=== PATIENT | male | born 1960 | race Caucasian/White ===

== ENCOUNTER 2020-12-21 22:32 | Emergency (ER) | payer OTHER ==
[~2020-12-21] VITALS: Ht 180.3 cm; Wt 83.9 kg
[~2020-12-21 22:32] MED LIST: BP MED; CHOLESTEROL MED; LEVO25TA9 PO
[2020-12-21] MEDS ORDERED: ONDANSETRON HCL/PF 4 MG/2 ML VIAL IVP ONE (23:00)
[2020-12-21] MEDS ORDERED: MORPHINE SULFATE INJ 2 MG/ML DISP.SYRIN IV ONE (23:00)
[2020-12-21] MEDS ORDERED: MORPHINE SULFATE INJ 4 MG/ML DISP.SYRIN ONE (23:05)
[2020-12-21] MEDS ORDERED: ONDANSETRON HCL/PF 4 MG/2 ML VIAL ONE (23:05)
[2020-12-21 23:18] LABS: HEMOGLOBIN 14.1 g/dL (13.5-17.5); WHITE BLOOD COUNT (AUTO) 8.2 K/uL (4.3-11.0)
[2020-12-21 23:23] LABS: BASOPHILS # (AUTO) 0.1 K/uL (0.0-0.2); BASOPHILS % (AUTO) 0.7 % (0.0-2.0); HEMATOCRIT 42 % (39-51); LYMPHOCYTES # (AUTO) 2.5 K/uL (0.8-4.8); LYMPHOCYTES % (AUTO) 29.9 % (20.0-44.0); MEAN CORPUSCULAR HGB CONC 34 g/dl (31.0-36.0); MEAN CORPUSCULAR VOLUME 92 fL (80-96); MONOCYTES # (AUTO) 0.8 K/uL (0.1-1.30); NEUTROPHILS # (AUTO) 4.4 K/uL (1.8-8.9); NEUTROPHILS % (AUTO) 53.4 % (43.0-81.0); PLATELET COUNT (AUTO) 216 K/uL (150-450); RED BLOOD CELL COUNT(AUTO) 4.53 MIL/uL (4.5-6.0)
[2020-12-21 23:28] LABS: BILIRUBIN,URINE Negative (NEGATIVE); COLOR,URINE YELLOW (YELLOW); LEUKOCYTE ESTERASE ,URINE Negative (NEGATIVE); NITRITE, URINE Negative (NEGATIVE); PROTEIN,URINE Negative (NEGATIVE); UGLUCOSE Negative (NEGATIVE); UROBILINOGEN,URINE 0.2 EU/dL (0.2)
[2020-12-21 23:51] LABS: ALBUMIN 3.9 g/dL (3.4-5.0); BILIRUBIN,DIRECT 0.1 mg/dL (0.0-0.2); BILIRUBIN,TOTAL 0.4 mg/dL (0.2-1.0); CALCIUM, SERUM 8.3 mg/dL (8.5-10.1); CREATININE 1.1 mg/dL (0.6-1.3); POTASSIUM 4.3 mmol/L (3.5-5.1); TOTAL PROTEIN, SERUM 7.4 g/dL (6.4-8.2)
[2020-12-22] MEDS ORDERED: PIPERACILLIN /TAZOBACTAM 3.375 G in IV D5W 50 ML IV ONE
[2020-12-22] MEDS ORDERED: IV NS 0.9% 1,000 ML BAG IV ONE
[2020-12-22] MEDS ORDERED: HYDROMORPHONE INJ 2 MG/ML DISP.SYRIN IV ONE
[2020-12-22] MEDS ORDERED: PIPERACILLIN /TAZOBACTAM 3.375 G VIAL IV ONE (00:20)
[2020-12-22] MEDS ORDERED: HYDROMORPHONE 1 MG/1 ML DISP.SYRIN ONE (00:20)
--- NOTE | 2020-12-22 00:31 | NUR ---
[facility] CALLED FOR HIGHER LEVEL OF CARE. NO BEDS AVAILABLE.
--- NOTE | 2020-12-22 00:35 | NUR ---
[facility] CALLED FOR HIGHER LEVEL OF CARE. [facility] FAXED.
--- NOTE | 2020-12-22 00:53 | NUR ---
ANUPAM CARPENTER [facility] TRANSFER CALLED FOR [employer] TRANSFER REQUEST. MESSAGE LEFT. [facility] FAXED.
--- NOTE | 2020-12-22 01:02 | NUR ---
[facility] CALLED FOR HIGHER LEVEL OF CARE.
--- NOTE | 2020-12-22 01:45 | NUR ---
SPOKE WITH [facility]. NO [facility] BEDS.
[2020-12-22] MEDS ORDERED: CETI10TA14 PO (07:16)
[2020-12-22] MEDS ORDERED: BENA20TA9 PO (07:16)
[2020-12-22] MEDS ORDERED: FLUT16SP16 (07:16)
[2020-12-22] MEDS ORDERED: ATOR40TA PO (07:16)
--- NOTE | 2020-12-22 09:46 | NUR ---
[facility] CALLED DANIELLE WILL CALL US BACK WITH MD FOR TRANSFER.
--- NOTE | 2020-12-22 09:50 | NUR ---
[facility]NAG[facility] CALLED FOR ASSISTANCE IN HIGHER LEVEL OF CARE TRANSFER
--- NOTE | 2020-12-22 11:50 | NUR ---
DR. GRAHAM SPEAKING WITH DR. SCHWARTZ
[2020-12-22] MEDS ORDERED: MORPHINE SULFATE INJ 2 MG/ML DISP.SYRIN IV ONE (12:00)
[2020-12-22] MEDS ORDERED: MORPHINE SULFATE INJ 2 MG/ML DISP.SYRIN ONE (12:15)
--- NOTE | 2020-12-22 13:59 | NUR ---
Patient Tranfers to outside Facility Physician: Location: [facility] number for report [phone] room [id number]
--- NOTE | 2020-12-22 14:04 | NUR ---
[facility] WILL TRANSPORT PT IN 45 MINS. [phone]
[2020-12-22 14:06] VITALS: BP 150/81
--- NOTE | 2020-12-22 14:37 | NUR ---
patient picked by private ambulance going to [facility] in no distress.
== END 2020-12-22 14:37 | disposition short-term general hospital (02) ==
LOC: ER 22:35
DX: K80.51 Calculus of bile duct without cholangitis or cholecystitis with obstruction (principal); Z20.822 Contact with and (suspected) exposure to COVID-19; I10 Essential (primary) hypertension; E03.9 Hypothyroidism, unspecified; E78.5 Hyperlipidemia, unspecified; Z79.890 Hormone replacement therapy; Z79.899 Other long term (current) drug therapy; K57.30 Diverticulosis of large intestine without perforation or abscess without bleeding; Z90.49 Acquired absence of other specified parts of digestive tract
CPT/HCPCS: 36415; 74176; 80048; 80076; 81003; 83690; 85025; 87426; 93005; 96365; 96375 ×2; 96376; 99285; C9803; J1170; J2270 ×2; J2405; J2543; J7030; J7060

== ENCOUNTER 2022-11-08 12:57 | Emergency (ER) | payer OTHER ==
[~2022-11-08] VITALS: Ht 180.3 cm; Wt 104.8 kg
[~2022-11-08 12:57] MED LIST changes: +ATOR40TA PO; +BENA20TA9 PO; -BP MED; +CETI10TA14 PO; -CHOLESTEROL MED; +FLUT16SP16
[2022-11-08] MEDS ORDERED: IV NS 0.9% 1,000 ML BAG IV ONE (13:30)
[2022-11-08 14:02] LABS: BASOPHILS # (AUTO) 0.1 K/uL (0.0-0.2); BASOPHILS % (AUTO) 1.2 % (0.0-2.0); EOSINOPHILS # (AUTO) 0.2 K/uL (0.0-0.7); EOSINOPHILS % (AUTO) 2.2 % (0.0-6.0); HEMATOCRIT 45 % (39-51); HEMOGLOBIN 15.2 g/dL (13.5-17.5); LYMPHOCYTES # (AUTO) 2.3 K/uL (0.8-4.8); LYMPHOCYTES % (AUTO) 24.6 % (20.0-44.0); MEAN CORPUSCULAR HEMOGLOBIN 31 PG (26.0-33.0); MEAN CORPUSCULAR HGB CONC 34 g/dl (31.0-36.0); MEAN CORPUSCULAR VOLUME 91 fL (80-96); MONOCYTES # (AUTO) 0.7 K/uL (0.1-1.30); MONOCYTES % (AUTO) 7.2 % (2.0-12.0); NEUTROPHILS % (AUTO) 64.8 % (43.0-81.0); PLATELET COUNT (AUTO) 264 K/uL (150-450); RED BLOOD CELL COUNT(AUTO) 4.95 MIL/uL (4.5-6.0); RED CELL DISTRIBUTION WIDTH 13.2 % (11.5-15.0); WHITE BLOOD COUNT (AUTO) 9.2 K/uL (4.3-11.0)
[2022-11-08 14:07] LABS: CALCIUM, SERUM 9.1 mg/dL (8.5-10.1); CARBON DIOXIDE 24 mmol/L (21-32); CHLORIDE 106 mmol/L (98-107); GLUCOSE 124 mg/dL (74-106); POTASSIUM 3.8 mmol/L (3.5-5.1); SODIUM SERUM 140 mmol/L (136-145); UREA NITROGEN, BLOOD 18 mg/dL (7-18)
[2022-11-08 14:12] LABS: INR 0.99 (0.91-1.10); PARTIAL THROMBOPLASTIN TIME 26.7 SEC (24.3-34.3); PROTHROMBIN TIME 10.4 SECS (9.2-11.1)
[2022-11-08 14:13] LABS: ALANINE AMINOTRANSFERASE 65 U/L (12-78); ALBUMIN 4.1 g/dL (3.4-5.0); ALKALINE PHOSPHATASE 129 U/L (46-116); ASPARTATE AMINOTRANSFERASE 56 U/L (15-37); BILIRUBIN,DIRECT 0.1 mg/dL (0.0-0.2); BILIRUBIN,TOTAL 0.5 mg/dL (0.2-1.0); TOTAL PROTEIN, SERUM 8.1 g/dL (6.4-8.2)
[2022-11-08 15:30] VITALS: BP 127/88; TEMP 98.3; O2SAT 99
== END 2022-11-08 15:30 | disposition home or self-care (01) ==
LOC: ER 12:59
DX: R41.0 Disorientation, unspecified (principal); I10 Essential (primary) hypertension; E78.00 Pure hypercholesterolemia, unspecified; E03.9 Hypothyroidism, unspecified; Z79.899 Other long term (current) drug therapy
CPT/HCPCS: 99285; 96360; 70450; 71045; 93005; 85025; 80048; 80076; 36415; 84484; 85730; 82962; J7030

== ENCOUNTER 2024-09-24 11:20 | Emergency (ER) | payer OTHER ==
[~2024-09-24] VITALS: Ht 177.8 cm; Wt 100.4 kg
[2024-09-24 11:38] VITALS: BP 125/80; TEMP 98.1
[2024-09-24] MEDS ORDERED: AMOX500C2 PO (12:15)
[2024-09-24] MEDS ORDERED: AMOXICILLIN TRIHYDRATE 250 MG CAPSULE ONE (12:24)
[2024-09-24] MEDS ORDERED: IBUPROFEN 600 MG TABLET ONE (12:25)
[2024-09-24] MEDS: IBUPROFEN 600 MG TABLET PO ONE (12:28)
[2024-09-24] MEDS: AMOXICILLIN TRIHYDRATE 500 MG CAPSULE PO ONE (12:28)
[2024-09-24 12:29] VITALS: O2SAT 97
== END 2024-09-24 12:30 | disposition home or self-care (01) ==
LOC: ER 11:25
DX: J02.9 Acute pharyngitis, unspecified (principal); E03.9 Hypothyroidism, unspecified; F17.200 Nicotine dependence, unspecified, uncomplicated; E78.00 Pure hypercholesterolemia, unspecified; I10 Essential (primary) hypertension; Z87.448 Personal history of other diseases of urinary system; Z90.49 Acquired absence of other specified parts of digestive tract; Z60.2 Problems related to living alone

== ENCOUNTER 2024-11-12 12:30 | Emergency (ER) | payer OTHER ==
[~2024-11-12] VITALS: Ht 177.8 cm; Wt 95.3 kg
[~2024-11-12 12:30] MED LIST changes: +AMOX500C2 PO
[2024-11-12] MEDS: IV NS 0.9% 1,000 ML BAG IV ONE (13:18)
[2024-11-12 13:27] LABS: PLATELET COUNT (AUTO) 228 K/uL (150-450); RED BLOOD CELL COUNT(AUTO) 4.95 MIL/uL (4.5-6.0); RED CELL DISTRIBUTION WIDTH 13.1 % (11.5-15.0); WHITE BLOOD COUNT (AUTO) 10.0 K/uL (4.3-11.0)
[2024-11-12 13:42] LABS: CALCIUM, SERUM 8.8 mg/dL (8.5-10.1); CREATININE 1.2 mg/dL (0.6-1.3); SODIUM SERUM 138.0 mmol/L (136-145); UREA NITROGEN, BLOOD 20.0 mg/dL (7-18)
[2024-11-12] MEDS ORDERED: DICY10CA37 PO (13:42)
[2024-11-12 13:47] LABS: ASPARTATE AMINOTRANSFERASE 42.0 U/L (15-37); TOTAL PROTEIN, SERUM 7.6 g/dL (6.4-8.2)
[2024-11-12 14:55] VITALS: BP 120/78; TEMP 98.1; O2SAT 96
== END 2024-11-12 14:56 | disposition home or self-care (01) ==
LOC: ER 12:32
DX: R10.9 Unspecified abdominal pain (principal); R19.7 Diarrhea, unspecified; I10 Essential (primary) hypertension; F17.200 Nicotine dependence, unspecified, uncomplicated; E78.5 Hyperlipidemia, unspecified; E03.9 Hypothyroidism, unspecified; Z60.2 Problems related to living alone; Z79.899 Other long term (current) drug therapy
CPT/HCPCS: 99284; 74176; 96360; 85025; 80048; 83690; 80076; 36415; J7030